=== PATIENT | male | born 1980 | race Caucasian/White ===

== ENCOUNTER 2018-08-09 09:01 | Emergency (ER) | payer BC ==
[2018-08-09 09:27] VITALS: BP 123/83
--- NOTE | 2018-08-09 10:10 | UC ---
Abdominal Pain Male HPI - HPI Summary HPI Summary: The patient is a 38-year-old male with a four-day history of nausea vomiting and diarrhea. He has felt feverish and had chills. His had night sweats. His pain is primarily located in the right lower quadrant. He has had some anorexia. He has been had multiple episodes of diarrhea day. His nausea and vomiting has been a lesser complaint. His daughter was recently treated for HSP - History of Current Complaint Chief Complaint: UCGI Stated Complaint: STOMACHE ACHE,DIARRHEA,VOMITING Time Seen by Provider: 08/09/18 09:32 Hx Obtained From: Patient Onset/Duration: Gradual Onset, Lasting Hours, Lasting Days Severity Initially: Mild Severity Currently: Moderate Pain Intensity: 4 Pain Scale Used: 0-10 Numeric Location: Discrete At: RLQ Radiates: No Character: Colicy, Cramping Aggravating Factor(s): Food Alleviating Factor(s): Nothing Associated Signs And Symptoms: Positive: Diaphoresis, Fever, Decreased Appetite , Nausea, Vomiting, Diarrhea. Negative: Back Pain, Constipation, Blood in Stool , Urinary Symptoms - Allergies/Home Medications Allergies/Adverse Reactions: Allergies Allergy/AdvReac Type Severity Reaction Status Date / Time Adhesive Tape Allergy Rash Verified 04/15/17 13:07 theophylline Allergy Vomiting Verified 08/09/18 09:22 Home Medications: Home Medications L.acidoph,Paracasei, B.lactis [Probiotic] 1 each PO DAILY 08/09/18 [History Confirmed 08/09/18] PMH/Surg Hx/FS Hx/Imm Hx Previously Healthy: Yes - Surgical History Surgical History: None - Family History Known Family History: Positive: Hypertension - FATHER, Other - brain aneurysms. no asthma - Social History Alcohol Use: Occasionally Substance Use Type: None Smoking Status (MU): Never Smoked Tobacco - Immunization History Most Recent Influenza Vaccination: 2017 Most Recent Tetanus Shot: unknown- within 10 years Review of Systems All Other Systems Reviewed And Are Negative: Yes Constitutional: Positive: Fever, Chills Skin: Positive: Negative Eyes: Positive: Negative ENT: Positive: Negative Respiratory: Positive: Negative Gastrointestinal: Positive: Abdominal Pain, Vomiting, Diarrhea, Nausea Motor: Positive: Negative Neurovascular: Positive: Negative Musculoskeletal: Positive: Negative Neurological: Positive: Negative Psychological: Positive: Negative Physical Exam Triage Information Reviewed: Yes Appearance: Well-Appearing, No Pain Distress, Well-Nourished Vital Signs: Initial Vital Signs Temp 98 F 08/09/18 09:16 Pulse 70 08/09/18 09:16 Resp 16 08/09/18 09:16 BP 123/83 08/09/18 09:16 Pulse Ox 100 08/09/18 09:16 Vital Signs Reviewed: Yes Eyes: Positive: Conjunctiva Clear ENT: Positive: Hearing grossly normal. Negative: Nasal congestion, Nasal drainage, Tonsillar swelling, Tonsillar exudate, Muffled voice, Hoarse voice Neck: Positive: Tenderness @ - see image Respiratory: Positive: Lungs clear, Normal breath sounds, No respiratory distress, No accessory muscle use Cardiovascular: Positive: RRR, No Murmur Musculoskeletal: Positive: ROM Intact, No Edema Neurological Exam: Normal Neurological: Positive: Alert Psychological: Positive: Normal Response To Family Skin Exam: Normal Abd Pain Male Course/Dx - Course Course Of Treatment: Urine-neg. D/w Darya Bowser NP [facility] ER. to er via pov - Differential Dx/Clinical Impression Provider Diagnosis: Abdominal pain, right lower quadrant Discharge - Sign-Out/Discharge Documenting (check all that apply): Patient Departure All imaging exams completed and their final reports reviewed: No Studies - Discharge Plan Condition: Stable Disposition: HOME-RECOMMEND TO ED Referrals: Tiffany Lora MD [Primary Care Provider] - Additional Instructions: I suggest you go to the ER for evaluation of your abdominal pain Don't eat or drink en route - Billing Disposition and Condition Condition: STABLE Disposition: Home-Recommend to ED
== END 2018-08-09 10:08 | disposition home health service (06) ==
LOC: UCCORT 09:01
DX: R10.31 Right lower quadrant pain (principal); R11.2 Nausea with vomiting, unspecified; R19.7 Diarrhea, unspecified; R63.0 Anorexia; R61 Generalized hyperhidrosis; R50.9 Fever, unspecified; Z91.09 Other allergy status, other than to drugs and biological substances; Z88.8 Allergy status to other drugs, medicaments and biological substances
CPT/HCPCS: 81003; 99212; G0463